=== PATIENT | female | born 1980 | race Caucasian/White ===

== ENCOUNTER 2021-10-18 17:29 | Emergency (ER) | payer SELFPAY ==
[2021-10-18] MEDS ORDERED: Azithromycin 250 MG TAB ONE (18:55)
[2021-10-18] MEDS ORDERED: cefTRIAXone\\ROCEPHIN 500 MG VIAL ONE ×2 (18:55→18:58)
[2021-10-18] MEDS ORDERED: Lidocaine 2% PF 100 mg/5 ml Syringe ONE (18:58)
[2021-10-19 15:30] LABS: Chlamydia by PCR Not Detected (NotDetected); GC by PCR Not Detected (NotDetected)
== END 2021-10-18 19:06 | disposition home or self-care (01) ==
LOC: CSHERS 17:29
DX: J02.9 Acute pharyngitis, unspecified (principal); Z20.89 Contact with and (suspected) exposure to other communicable diseases
CPT/HCPCS: 87491; 87591; 96372; 99283; J0696; J2001

== ENCOUNTER → 2022-04-15 | Emergency (ER) | payer MEDICAID, SELFPAY | LOC: CSHERS 17:04 | DX: Z53.21 Procedure and treatment not carried out due to patient leaving prior to being seen by health care provider (principal) ==

== ENCOUNTER 2022-05-13 16:30 | Emergency (ER) | payer MEDICAID, SELFPAY ==
[2022-05-13 17:02] LABS: Bilirubin Neg (Negative); Blood, Urine 10 (Negative); Clarity Slightly Cloudy (Clear); Glucose, Urine (Dipstick) Normal (Negative); Ketone, Urine Negative (Negative); Leukocyte Negative (Negative); Nitrite Negative (Negative); Protein, Urine (Dipstick) Negative (Neg-Trace); Specific Gravity, Urine 1.015 (1.005-1.030); Urobilinogen Normal mg/dL (Less than 2)
[2022-05-13 17:04] LABS: Pregnancy Test - Urine (BHCG) Negative (Negative); Pregu Control Background? CLEAR/WHITE (CLR/WHITE); Pregu Control Bar Appear? YES (CONTROL BAR); Specific Gravity 1.015 (1.002-1.036)
[2022-05-13] MEDS ORDERED: Sterile Water 10 ML ONE (17:12)
[2022-05-13] MEDS ORDERED: cefTRIAXone\\ROCEPHIN 500 MG VIAL ONE ×2 (17:12→17:19)
[2022-05-13] MEDS ORDERED: Lidocaine 1% (PF) 30 ML VIAL ONE (17:19)
[2022-05-13 17:28] LABS: RBC/HPF 0-3 HPF (0-3); Squamous Epithelial 0-3 HPF (0-3); WBC/HPF 0-3 HPF (0-3)
[2022-05-13 17:29] LABS: Bacteria/HPF Rare-Few HPF (None Seen)
[2022-05-14 10:33] LABS: Chlam.trachomatis by PCR,Urine Not Detected (NotDetected)
== END 2022-05-13 17:36 | disposition home or self-care (01) ==
LOC: CSHERS 16:30
DX: N89.8 Other specified noninflammatory disorders of vagina (principal); K02.9 Dental caries, unspecified; F17.210 Nicotine dependence, cigarettes, uncomplicated
CPT/HCPCS: 81003; 81015; 81025; 87491; 87591; 96372; 99284; J0696; J2001

== ENCOUNTER 2022-07-13 15:59 | Emergency (ER) | payer SELFPAY ==
[2022-07-13] MEDS ORDERED: Lidocaine 1% (PF) 30 ML VIAL ONE (16:42)
[2022-07-13] MEDS ORDERED: cefTRIAXone\\ROCEPHIN 500 MG VIAL ONE (16:42)
[2022-07-14 21:32] LABS: Chlamydia by PCR Not Detected (NotDetected); GC by PCR Not Detected (NotDetected)
== END 2022-07-13 17:01 | disposition home or self-care (01) ==
LOC: CSHERS 15:59
DX: N76.0 Acute vaginitis (principal); F17.210 Nicotine dependence, cigarettes, uncomplicated
CPT/HCPCS: 87480; 87491; 87510; 87591; 87660; 96372; 99283; J0696; J2001

== ENCOUNTER → 2022-09-02 | Emergency (ER) | payer SELFPAY ==
[~2022-09-02] MED LIST: Azithromycin 250 MG TAB ONE; Lidocaine 2% PF 5 ML VIAL ONE; cefTRIAXone (ROCEPHIN) 500 MG VIAL ONE
[2022-09-02 14:20] LABS: Bilirubin Neg (Negative); Blood, Urine 150 (Negative); Clarity Clear (Clear); Glucose, Urine (Dipstick) Normal (Negative); Ketone, Urine Negative (Negative); Leukocyte Negative (Negative); Nitrite Negative (Negative); Protein, Urine (Dipstick) Negative (Neg-Trace); Specific Gravity, Urine 1.015 (1.005-1.030); Urobilinogen Normal mg/dL (Less than 2)
[2022-09-02 14:46] LABS: Bacteria/HPF None Seen HPF (None Seen); RBC/HPF 0-3 HPF (0-3); Squamous Epithelial 0-3 HPF (0-3); WBC/HPF 0-3 HPF (0-3)
== END ==
LOC: CSHERS 13:41
DX: Z20.2 Contact with and (suspected) exposure to infections with a predominantly sexual mode of transmission (principal); F17.200 Nicotine dependence, unspecified, uncomplicated
CPT/HCPCS: 81003; 81015; 99283; J0696; J2001

== ENCOUNTER 2023-03-11 14:47 | Emergency (ER) | payer SELFPAY ==
[2023-03-11 16:01] LABS: Pregnancy Test - Urine (BHCG) Negative (Negative); Pregu Control Bar Appear? YES (CONTROL BAR)
[2023-03-11 16:02] LABS: Pregu Control Background? CLEAR/WHITE (CLR/WHITE); Specific Gravity 1.005 (1.002-1.036)
[2023-03-11] MEDS ORDERED: metroNIDAZOLE 500 MG TAB ONE (16:26)
[2023-03-11] MEDS ORDERED: Lidocaine 1% MPF 2 ML VIAL ONE (16:27)
[2023-03-11] MEDS ORDERED: cefTRIAXone (ROCEPHIN) 500 MG VIAL ONE (16:27)
[2023-03-11] MEDS ORDERED: Doxycycline 100 MG CAP PO SCH (16:45)
== END 2023-03-11 16:45 | disposition home or self-care (01) ==
LOC: CSHERS 14:47
DX: N76.0 Acute vaginitis (principal); F17.210 Nicotine dependence, cigarettes, uncomplicated
CPT/HCPCS: 81025; 96372; 99283; J0696